=== PATIENT | female | born 1955 | race Caucasian/White ===

== ENCOUNTER 2025-03-15 10:42 | Day surgery (SDC) | payer BC, MEDICARE ==
[2025-03-15] MEDS ORDERED: Propofol 500 MG/50 ML SDV ONE (12:00)
[2025-03-15 12:20] VITALS: BP 137/64; PULSE 58
== END 2025-03-15 13:02 | disposition home or self-care (01) ==
LOC: LB.SDS 10:42
PROVIDERS: ATTEND Surgery
DX: K57.30 Diverticulosis of large intestine without perforation or abscess without bleeding (principal); K52.9 Noninfective gastroenteritis and colitis, unspecified; K62.89 Other specified diseases of anus and rectum; I10 Essential (primary) hypertension; E78.00 Pure hypercholesterolemia, unspecified; Z88.5 Allergy status to narcotic agent; Z79.899 Other long term (current) drug therapy
CPT/HCPCS: 88305; J2704; J7030